=== PATIENT | female | born 1975 | race African-American/Black ===

== ENCOUNTER 2018-05-19 13:23 | Emergency (ER) | payer SELFPAY ==
[2018-05-19 13:40] VITALS: BP 142/109; PULSE 92; TEMP 98.5; BMI 34.4
[2018-05-19] MEDS ORDERED: HYDROmorphone HCL CARPU-JECT 2 MG/1 ML DISP.SYRIN IVPUSH ONE (14:13)
[2018-05-19] MEDS ORDERED: HYDROmorphone HCl 2 MG/ML VIAL ONE (14:29)
[2018-05-19] MEDS ORDERED: LIDOCAINE HCL 2% (20ML MULTI-DOSE VIAL) NR ONE (14:47)
--- NOTE | 2018-05-19 15:07 | PDOC ---
Documentation entered by Rosa Reid SCRIBE, acting as scribe for Bob Castillo MD. Attending Attestation - Resident Resident Name: Ho Brasher - ED Attending Attestation I have performed the following: I have examined & evaluated the patient, The case was reviewed & discussed with the resident, I agree w/resident's findings & plan - HPI HPI: 05/19/18 14:33 The patient is a 43 year old female, with no significant past medical history, who presents to the emergency department with pain to her left lower extremity after slipping and falling on ice today. She reports inability to ambulate secondary to pain. The patient denies chest pain, shortness of breath, headache and dizziness. The patient denies fever, chills, nausea, vomit, diarrhea and constipation. The patient denies dysuria, frequency, urgency and hematuria. Allergies: NKDA - Physicial Exam PE: 05/19/18 15:02 vitals are wnl exam is atraumatic except for LLE: ankle deformity with posterior dislocation, skin tenting anteriorly but intact. 2+ DP pulse on L, sensory decreased but well perfused, unable to range toes - Critical Care Time Total Critical Care Time: 30 Critical Care Statement: The care of this patient involved high complexity decision making to prevent further life threatening deterioration of the patient 's condition and/or to evaluate & treat vital organ system(s) failure or risk of failure. - Medical Decision Making 05/19/18 15:03 43-year-old female with slip on steps, isolated left ankle injury suspicious for fracture/dislocation, neurovascularly intact. Stat x-ray confirms trimalleolar fracture and dislocation received pain control and intra-articular lidocaine reduction performed, posterior and U splint, nvi post procedure and now able to range toes ortho consulted but not immediately available. will give referral Bob Castillo MD: This documentation has been prepared by the Jeanette guerra Amanda, SCRIBE, under my direction and personally reviewed by me in its entirety. I confirm that the documentation accurately reflects all work, treatment, procedures, and medical decision making performed by me.
--- NOTE | 2018-05-19 15:40 | PDOC ---
History of Present Illness - General Chief Complaint: Injury Stated Complaint: FALL,R/O DISLOCATED LT ANKLKE Time Seen by Provider: 05/19/18 13:47 History Source: Patient Exam Limitations: No Limitations - History of Present Illness Initial Comments: 05/19/18 15:32 43 yo female presents to ED after slip and fall with L ankle deformity. Pt states she was walking down her outside steps when she slipped on ice causing an inversion mechanism, sudden onset pain, deformity and could not bare weight. Denies loss of sensation in the foot, pain or bruising to any other part of her body or further complaints. Pt not able to dorsi or plantar flex due to pain but is moving her toes without difficulty Past History - Past Medical History Allergies/Adverse Reactions: Allergies Allergy/AdvReac Type Severity Reaction Status Date / Time No Known Allergies Allergy Verified 05/19/18 13:38 Home Medications: Ambulatory Orders Ibuprofen [Motrin -] 600 mg PO TID #21 tablet 05/19/18 Oxycodone HCl/Acetaminophen [Percocet 5-325 mg Tablet] 1 - 2 tab PO TID PRN #20 tab MDD 6 tabs 05/19/18 COPD: No - Suicide/Smoking/Psychosocial Hx Smoking History: Never smoked Have you smoked in the past 12 months: No Information on smoking cessation initiated: No Hx Alcohol Use: No Drug/Substance Use Hx: No *Physical Exam - Vital Signs Last Vital Signs Temp Pulse Resp BP Pulse Ox 98.5 F 92 H 18 142/109 H 100 05/19/18 13:33 05/19/18 13:33 05/19/18 13:33 05/19/18 13:33 05/19/18 13:33 - Physical Exam General Appearance: Yes: Nourished, Appropriately Dressed, Apparent Distress ( ankle deformity and is in excessive pain) HEENT: positive: EOMI Respiratory/Chest: positive: Lungs Clear, Normal Breath Sounds Cardiovascular: positive: Regular Rhythm, Regular Rate Vascular Pulses: Dorsalis-Pedis (R): 4+, Doralis-Pedis (L): 4+ Gastrointestinal/Abdominal: positive: Flat, Soft. negative: Distended, Tenderness Musculoskeletal: positive: Other (neurovascularly intact bilateral lower ext with visible left foot/ankle def inverted and plantar flexed. Excessive pain on palpation and swelling. Closed skin noted). negative: Normal Inspection (left ankle deformity) Extremity: positive: Normal Capillary Refill, Swelling, Other ( Pt not able to dorsi or plantar flex due to pain but is moving her toes without difficulty) Neurologic: positive: Fully Oriented, Alert, Normal Mood/Affect, Normal Response Moderate Sedation - Procedure Monitoring Vital Signs: Procedure Monitoring Vital Signs Temperature 98.5 F 05/19/18 13:33 Pulse Rate 92 H 05/19/18 13:33 Respiratory Rate 18 05/19/18 13:33 Blood Pressure 142/109 H 05/19/18 13:33 O2 Sat by Pulse Oximetry (%) 100 05/19/18 13:33 Procedures - Joint Reduction Left Joint Reduction Site: left: Anterior Dislocation (ankle) Pre-Procedure NV Exam: normal pulsess, sensation and able to wiggle toes Conscious Sedation: Yes Anesthetic: 2% Lidocaine (hematoma block) Amount (mL): 10 Procedure: Other (quigly) Post-Procedure NV Exam: normal pulsess, sensation and able to wiggle toes Complications: No Post Joint Reduction Film: joint reduced Splint: Yes ED Treatment Course - RADIOLOGY Radiology Studies Ordered: Category Date Time Status ANKLE & FOOT-LEFT* [RAD] Stat Radiology 05/19/18 14:10 Taken ANKLE & FOOT-LEFT* [RAD] Stat Radiology 05/19/18 15:13 Taken LEG TIB/FIB-LEFT [RAD] Stat Radiology 05/19/18 14:10 Taken Medical Decision Making - Medical Decision Making 43 yo presents after trip and fall with left ankle deformity, swelling and pain Pt given 1 mg Dilaudid which helps relieve pain X ray foot and ankle show bilateral maleolar fractures with displacement of the talus Ortho consulted, Dr. Opal VILCHIS returns call, states he is at [facility] and will come to assist with reduction if we need him. Successful reduction achieved using quigly technique and hematoma block for pain. Splint placed. Pain reduced after procedure, sensation intact and patient able to wiggle all her toes. See procedure note Post reduction film shows better alignment, MAME consulted, reviews images and agrees pt is safe for fu this Friday in clinic and will schedule surgery as outpt Pt continues to have pain, 2 percocets and motrin given Pt provided with detailed instructions on how to care for her ankle, given crutches and pain medications along with Ortho phone number to set appointment time Friday. Pt understands DC instructions *DC/Admit/Observation/Transfer Diagnosis at time of Disposition: Closed left ankle fracture Qualifiers: Encounter type: initial encounter Qualified Code(s): S82.892A - Other fracture of left lower leg, initial encounter for closed fracture - Discharge Dispostion Disposition: HOME Condition at time of disposition: Stable Decision to Admit order: No - Prescriptions Prescriptions: Ibuprofen [Motrin -] 600 mg PO TID #21 tablet Oxycodone HCl/Acetaminophen [Percocet 5-325 mg Tablet] 1 - 2 tab PO TID PRN #20 tab MDD 6 tabs PRN Reason: Pain - Referrals Referrals: Leonardo Joseph MD [Staff Physician] - - Patient Instructions Printed Discharge Instructions: DI for Ankle Fracture, How to Prevent Falls Additional Instructions: Please call Dr. Joseph office for a time of appointment this Friday; they are expecting your call. See your Primary Doctor within the next 48 hours. Take Motrin 3 times a day for the next 1 week to reduce swelling and pain and take the medication Percocet as prescribed to reduce pain as needed. Keep the splint in place, use crutches, do no weight bare and keep your left foot elevated whenever possible until your appointment with Orthopedics. Return to the ER for new or concerning symptoms including but not limited to: inability to move your toes, loss of sensation to the feet, excessive pain not relieved by medications , high fevers. Thank you - Post Discharge Activity
[2018-05-19] MEDS ORDERED: IBUPROFEN 400 MG TABLET (FP) PO ONE ×2 (15:55→16:13)
== END 2018-05-19 16:30 | disposition home or self-care (01) ==
LOC: JER 13:23
PROC: 3E033NZ Introduction of Analgesics, Hypnotics, Sedatives into Peripheral Vein, Percutaneous Approach (ICD-10-PCS; principal; 2018-05-19)
PROC: 0QSHXZZ Reposition Left Tibia, External Approach (ICD-10-PCS; 2018-05-19)
PROC: 0QSKXZZ Reposition Left Fibula, External Approach (ICD-10-PCS; 2018-05-19)
PROC: 2W3RX1Z Immobilization of Left Lower Leg using Splint (ICD-10-PCS; 2018-05-19)
DX: S82.852A Displaced trimalleolar fracture of left lower leg, initial encounter for closed fracture (principal); W00.1XXA Fall from stairs and steps due to ice and snow, initial encounter; Y93.89 Activity, other specified; Y92.89 Other specified places as the place of occurrence of the external cause; Y99.8 Other external cause status
CPT/HCPCS: 73590-TC-LT-FY; 73610-TC-LT-FY; 73630-TC-LT; 99282-25

== ENCOUNTER 2018-05-22 16:44 | Emergency (ER) | payer SELFPAY ==
[2018-05-22 17:01] VITALS: TEMP 98.3; BMI 34.5
--- NOTE | 2018-05-22 17:23 | PDOC ---
History of Present Illness - General Chief Complaint: Injury Stated Complaint: NEEDS SEDATION FOR ANKLE REDUCTION Time Seen by Provider: 05/22/18 17:06 History Source: Patient, Care Provider Exam Limitations: No Limitations - History of Present Illness Initial Comments: 05/22/18 17:42 Ms Mckinnon is a 43 yo F presenting to the ER for conscious sedation Pt original injury occurred on 05/18/18 s/p flip and fall when she sustained an ankle fracture dislocation S/p reduction in the ER Pt was seen in the office today where she was noted to have subluxed out of place Attempt made to reduce ankle in the office unsuccessful due to pain Pt presents to the ER for conscious sedation ROS: GENERAL/CONSTITUTIONAL: No: fever, chills, weakness, CARDIOVASCULAR: No: chest pain, lightheadedness RESPIRATORY: No: cough, shortness of breath . GASTROINTESTINAL: No: nausea, vomiting, diarrhea, abdominal pain GENITOURINARY: No: dysuria, hematuria MUSCULOSKELETAL: Yes: left ankle pain SKIN: No: lesions,rash NEUROLOGIC: No: headache, vertigo, paresthesias, weakness PE: GENERAL: The patient is in no acute distress, otherwise well appearing HEAD: Normal EYES: PERRLA, EOMI, sclera anicteric, conjunctiva clear. ENT: Ears normal, nares patent, oropharynx clear without exudates. Moist mucous membranes. LUNGS: Breath sounds equal, clear to auscultation bilaterally. No wheezes, and no crackles. HEART:Regular rate and rhythm, normal S1 and S2 without murmur, rub or gallop. ABDOMEN: Soft, nontender EXTREMITIES: Left leg: left posterior splint in place, will not remove. Right leg: Normal range of motion, no edema. NEUROLOGICAL: Cranial nerves II through XII grossly intact. Normal speech. No focal neurological deficits. MUSCULOSKELETAL: Back non-tender to palpation, no CVA tenderness SKIN: Warm, Dry, normal turgor, no rashes or lesions noted. Past History - Past Medical History Allergies/Adverse Reactions: Allergies Allergy/AdvReac Type Severity Reaction Status Date / Time No Known Allergies Allergy Verified 05/19/18 13:38 Home Medications: Ambulatory Orders Ibuprofen [Motrin -] 600 mg PO TID #21 tablet 05/19/18 Oxycodone HCl/Acetaminophen [Percocet 5-325 mg Tablet] 1 - 2 tab PO TID PRN #20 tab MDD 6 tabs 05/19/18 COPD: No Other medical history: FX LEFT ANKLE - Suicide/Smoking/Psychosocial Hx Smoking History: Never smoked Have you smoked in the past 12 months: No Hx Alcohol Use: No Drug/Substance Use Hx: No *Physical Exam - Vital Signs Last Vital Signs Temp Pulse Resp BP Pulse Ox 98.3 F 90 16 137/98 100 05/22/18 16:45 05/22/18 16:45 05/22/18 16:45 05/22/18 16:45 05/22/18 16:45 Moderate Sedation - Procedure Monitoring Vital Signs: Procedure Monitoring Vital Signs Temperature 98.3 F 05/22/18 16:45 Pulse Rate 90 05/22/18 16:45 Respiratory Rate 16 05/22/18 16:45 Blood Pressure 137/98 05/22/18 16:45 O2 Sat by Pulse Oximetry (%) 100 05/22/18 16:45 Medical Decision Making - Medical Decision Making 05/22/18 17:49 Conscious sedation per anesthesia Ankle reduction per Ortho *DC/Admit/Observation/Transfer Diagnosis at time of Disposition: Closed left ankle fracture Qualifiers: Encounter type: subsequent encounter Fracture healing: with routine healing Qualified Code(s): S82.892D - Other fracture of left lower leg, subsequent encounter for closed fracture with routine healing - Discharge Dispostion Condition at time of disposition: Stable Decision to Admit order: No - Referrals Referrals: Leonardo Joseph MD [Primary Care Provider] - - Patient Instructions Printed Discharge Instructions: DI for Ankle Dislocation Additional Instructions: Ms ChapmanMckinnon Thank you for coming in to the ER today Please be sure to follow up with Dr Joseph per his instructions Monitor your left leg for severe pain, color change of the toes, pins and needles If you feel that, please come back and see us in the ER OR call the office - Post Discharge Activity
[2018-05-22] MEDS ORDERED: morphine SULFATE 4 MG/ML VIAL ONE (18:57)
[2018-05-23 00:19] VITALS: BP 138/92; PULSE 85
--- NOTE | 2018-05-24 11:24 | PN ---
Progress Note (short form) - Note Progress Note: This patient is a 43-year-old who was seen in the office earlier today. A closed reduction was attempted in the office under local anesthetic of her ankle however, persistent lateral translation of the talus was noted on x-rays. She was referred to the ER to try a closed reduction under conscious sedation. After administration of conscious sedation by the anesthetic staff, the ankle was hung in traction by the toes in a manual reduction was effected. The mini C arm was used to verify satisfactory reduction of the ankle. The ankle was near anatomic. A well-padded short-leg cast was placed with a three-point mold. Films obtained with the cast in place demonstrated mild residual lateral subluxation of the talus. It was felt that this was the best possible reduction to be maintained with a cast. Instead of waiting 2 weeks to fix her fracture to allow for resolution of swelling, I recommend bringing her to the operating room this week for ORIF. We will schedule this through our office. She should contact our office if she has any concerns.
== END 2018-05-22 19:15 | disposition home or self-care (01) ==
LOC: FER 16:44
PROC: 0QSKXZZ Reposition Left Fibula, External Approach (ICD-10-PCS; principal; 2018-05-22)
DX: S82.892D Other fracture of left lower leg, subsequent encounter for closed fracture with routine healing (principal); W18.09XA Striking against other object with subsequent fall, initial encounter; Y93.89 Activity, other specified; Y92.89 Other specified places as the place of occurrence of the external cause
CPT/HCPCS: 73610-TC-LT-FY; 84703; 99282-25

== ENCOUNTER 2018-05-29 06:55 | Day surgery (SDC) | payer SELFPAY ==
[2018-05-29 07:00] VITALS: BMI 34.7
--- NOTE | 2018-05-29 07:05 | PDOC ---
History of Present Illness - General Chief Complaint: Pain, Acute Stated Complaint: LEFT ANKLE PAIN Time Seen by Provider: 05/29/18 07:03 History Source: Patient Exam Limitations: No Limitations - History of Present Illness Initial Comments: 05/29/18 07:04 Ms Mckinnon is a 43 yo F no medical history presenting to the ER for ORIF. Pt original injury occurred on 05/18/18 s/p flip and fall when she sustained an left ankle fracture dislocation In the ER on 05/24/18 - s/p closed reduction placed in cast immobilization by Dr Joseph today for ORIF. preoperative planning and labs requested. c/o mild numbness/tingling to to her left toes and ankle, has been in her cast and nonweight bearing. no other complaints. Allergies: NKA Past Medical History: none Social history: Lives with family. No smoking. No alcohol. No illicit drugs. Surgical history: none PMD: none ROS Constitutional: no fevers or chills. HEENT: no headache or dizziness. CVS: no cp Resp: no sob. Gastrointestinal: no abdominal pain MUSCULOSKELETAL: + joint pain and no swelling. +ankle fx SKIN: no redness or skin changes, no discharge, no rash. No wounds. Hematologic: no easy bruising/bleeding. NEUROLOGIC: No weakness, +numbness or tingling. Allergic/Immunologic: no allergies All other systems reviewed and negative, or as documented in HPI. PE: General: Well appearing, awake and alert, NAD. HEENT: NCAT, PERRL, EOMI, clear conjunctiva, anicteric, moist mucus membranes, clear oropharynx, no oral lesions.. Neck: neck supple, FROM Resp: CTAB, normal and even respirations, no respiratory distress CVS: RRR, no murmurs, 2+ peripheral pulses throughout Abdomen: soft, nontender Back: nontender, normal inspection and ROM MSK: no edema, [place] x4, ROM limited in LLE. Extremities: +LLE in short leg cast. Neuro: alert, oriented appropriately; wiggles toes, SILT in the bilateral toes, NVI Skin: warm and well perfused, cap refill <2 sec, normal color 05/29/18 07:26 05/29/18 07:28 Past History - Past Medical History Allergies/Adverse Reactions: Allergies Allergy/AdvReac Type Severity Reaction Status Date / Time No Known Allergies Allergy Verified 05/29/18 06:56 Home Medications: Ambulatory Orders Ibuprofen [Motrin -] 600 mg PO TID #21 tablet 05/19/18 Oxycodone HCl/Acetaminophen [Percocet 5-325 mg Tablet] 1 - 2 tab PO TID PRN #20 tab MDD 6 tabs 05/19/18 Anemia: No Asthma: No Cancer: No Cardiac Disorders: No CVA: No COPD: No CHF: No Dementia: No Diabetes: No GI Disorders: No Disorders: No HTN: No Hypercholesterolemia: No Liver Disease: No Seizures: No Thyroid Disease: No - Suicide/Smoking/Psychosocial Hx Smoking History: Current every day smoker Have you smoked in the past 12 months: Yes Number of Cigarettes Smoked Daily: 4 Information on smoking cessation initiated: Yes Hx Alcohol Use: No Drug/Substance Use Hx: No Substance Use Type: None Hx Substance Use Treatment: No *Physical Exam - Vital Signs Last Vital Signs Temp Pulse Resp BP Pulse Ox 98.7 F 102 H 18 132/94 100 05/29/18 06:55 05/29/18 06:55 05/29/18 06:55 05/29/18 06:55 05/29/18 06:55 Moderate Sedation - Procedure Monitoring Vital Signs: Procedure Monitoring Vital Signs Temperature 98.7 F 05/29/18 06:55 Pulse Rate 102 H 05/29/18 06:55 Respiratory Rate 18 05/29/18 06:55 Blood Pressure 132/94 05/29/18 06:55 O2 Sat by Pulse Oximetry (%) 100 05/29/18 06:55 Medical Decision Making - Medical Decision Making 05/29/18 07:30 History and physical as documented. In summary, 43-year-old female status post fall on 05/18/2018 with left ankle fracture/dislocation and here for ORIF. Vital signs reviewed, mild tachycardia likely due to pain we'll provide analgesia. Basic preoperative labs obtained, contacted primary orthopedist Dr. Joseph will admit to the operating room for ORIF. Patient has been maintained in her short-leg cast and has been nonweightbearing. Neurovascularly intact. Has been nothing by mouth since last night. *DC/Admit/Observation/Transfer Diagnosis at time of Disposition: Closed left ankle fracture Qualifiers: Encounter type: subsequent encounter Fracture healing: with malunion Qualified Code(s): S82.892P - Other fracture of left lower leg, subsequent encounter for closed fracture with malunion - Discharge Dispostion Condition at time of disposition: Stable Decision to Admit order: Yes Decision to Admit order Date/Time: 05/29/18 07:32 Decision to Admit Order Category Date Time Status Decision to Admit to Hospital Routine Admission 05/29/18 07:26 Ordered - Referrals - Patient Instructions - Post Discharge Activity
[2018-05-29] MEDS ORDERED: morphine CARPU-JECT 4 MG/1 ML DISP.SYRIN IVPUSH ONE (07:38)
[2018-05-29 08:00] LABS: BASO % 2.4 % (0-2.0); HEMOGLOBIN 13.6 GM/dl (10.7-15.3); LYMPH % 15.9 % (8-40); MCH 32.6 pg (25.7-33.7); MCHC 33.2 g/dl (32.0-36.0); MEAN CELL VOLUME 98.3 fl (80-96); MEAN PLT VOLUME 7.6 fl (7.5-11.1); MONO % 6.5 % (3.8-10.2); NEUT % 71.2 % (42.8-82.8); PLATELET COUNT 360 K/MM3 (134-434); RBC 4.17 M/mm3 (3.60-5.2); RDW 12.2 % (11.6-15.6); WHITE BLOOD COUNT 7.1 K/mm3 (4.0-10.8)
--- NOTE | 2018-05-29 08:06 | HP ---
Admitting History and Physical - Admission Chief Complaint: Left ankle fracture History of Present Illness: 43 yo female presents for left ankle ORIF s/p fall on 05/18/18. A closed reduction and casting was attempted by myself and Dr. Joseph in the ER on without satisfactory assignment. Patient presents in cast today, nonweight bearing. She complains of some numbness/tingling to to her left toes. No other complaints at this time. History Source: Patient - Past Medical History ...LMP: 05/15/18 - Past Surgical History Past Surgical History: Yes: None - Smoking History Smoking history: Current every day smoker Have you smoked in the past 12 months: Yes Aproximately how many cigarettes per day: 4 - Alcohol/Substance Use Hx Alcohol Use: No - Social History Usual Living Arrangement: Yes: With Spouse Home Medications - Allergies Allergies/Adverse Reactions: Allergies Allergy/AdvReac Type Severity Reaction Status Date / Time No Known Allergies Allergy Verified 05/29/18 06:56 - Home Medications Home Medications: Ambulatory Orders Ibuprofen [Motrin -] 600 mg PO TID #21 tablet 05/19/18 Oxycodone HCl/Acetaminophen [Percocet 5-325 mg Tablet] 1 - 2 tab PO TID PRN #20 tab MDD 6 tabs 05/19/18 Family Disease History - Family Disease History Family History: Denies Review of Systems - Review of Systems Musculoskeletal: reports: Extremity Pain (Left ankle pain) Physical Examination Vital Signs: Vital Signs Temperature 98.7 F 05/29/18 06:55 Pulse Rate 102 H 05/29/18 06:55 Respiratory Rate 18 05/29/18 06:55 Blood Pressure 132/94 05/29/18 06:55 O2 Sat by Pulse Oximetry (%) 100 05/29/18 06:55 Findings/Remarks: Left LE: Short leg cast in place Neurovascularly intact Cap refill intact Problem List - Problems (1) Closed left ankle fracture Code(s): S82.892A - OTH FRACTURE OF LEFT LOWER LEG, INIT FOR CLOS FX Qualifiers: Encounter type: subsequent encounter Fracture healing: with malunion Qualified Code(s): S82.892P - Other fracture of left lower leg, subsequent encounter for closed fracture with malunion Assessment/Plan A: left ankle fracture s/p mechanical fall on 05/18/18 P: Left ankle ORIF today Remain non-weight bearing Pain control F/u outpatient in 2 weeks
[2018-05-29] MEDS ORDERED: SUCCINYLCHOLINE CHLORIDE 200 MG/10 ML VIAL ONE (08:10)
[2018-05-29] MEDS ORDERED: PROPOFOL 20 ML ONE ×2 (08:10→10:00)
--- NOTE | 2018-05-29 08:14 | OP ---
Operative Note - Note: Operative Date: 05/29/18 Pre-Operative Diagnosis: Left distal fibula fracture Operation: Left ankle ORIF Post-Operative Diagnosis: Same as Pre-op Surgeon: Leonardo Joseph Junior Brand Manager: Leslie Luna Anesthesia: General Operative Report Dictated: Yes
[2018-05-29] MEDS ORDERED: MIDAZOLAM HCL 2 MG/2 ML SINGLE DOSE VIAL ONE ×3 (08:26→09:03)
[2018-05-29] MEDS ORDERED: ROPIVACAINE HCL 0.5% 30ML VIAL ONE (08:27)
[2018-05-29] MEDS ORDERED: ceFAZolin SODIUM 1 GM VIAL ONE (09:04)
[2018-05-29] MEDS ORDERED: TRANEXAMIC ACID 1000 MG/10 ML VIAL ONE (09:59)
--- NOTE | 2018-05-29 11:38 | OP ---
DATE OF OPERATION: 05/29/2018 PREOPERATIVE DIAGNOSIS: Left unstable ankle fracture. POSTOPERATIVE DIAGNOSIS: Left unstable ankle fracture. PROCEDURE: Left ankle open reduction internal fixation. SURGEON: Leonardo Panda MD DEMOLITION WORKER: MAME Kaplan whose skilled full assistance was necessary for the safe and timely performance of this procedure. Ms. Luna was able to procedure limb positioning, retraction, assist in fracture reduction as well as insertion of orthopaedic fixation hardware. BLOOD LOSS: 30 mL. POSTOPERATIVE CONDITION: Stable. COMPLICATIONS: None. IMPLANTS: Arthrex distal fibular plate with 2.7-mm distal locking and 3.5-mm cortical screws as well as one 3 cortical screw outside the plate and one 3.5-mm cortical screw outside the plate. TOURNIQUET TIME: 47 minutes. INDICATIONS: This is a pleasant woman who suffered a trip and fall on the ice. She was found to have a displaced and unstable ankle fracture. Given the instability and persistent displacement despite attempted closed reduction, the patient was indicated for operative treatment. The operative risks were reviewed in detail including bleeding, infection, neurovascular injury, need for further surgery, postoperative pain and stiffness, nonunion, malunion, hardware failure or cut out, posttraumatic arthrosis. We discussed medical risks such as heart attack, stroke, DVT, PE, and . I addressed the use of perioperative DVT and antibiotic prophylaxis. I addressed all of the patient's questions and concerns. She voiced understanding and elected to proceed. DESCRIPTION OF PROCEDURE: The patient was brought to the operating room after administration of a regional block in the preoperative holding area. The left lower extremity was then prepped and draped in the usual sterile fashion. A preoperative dose of antibiotics was given, and the usual time-out procedure was performed. The incision was now marked out on the the distal fibula. The limb was now exsanguinated, and the tourniquet was inflated to 250 mmHg. The incision was now carried down through skin through subcutaneous tissue. Blunt spreading was used to expose the periosteum over the tibula. This was then elevated anteriorly and posteriorly exposing the fracture site. The fracture site was widely displaced. There was mild comminution present. The fracture site was debrided of any loose debris. It was irrigated. The fracture reduction forceps was now used to bring the fracture into anatomic reduction. A lag screw was placed in standard A-to-P fashion. There was a secondary fragment, AITFL avulsion, which was held in place with a K-wire. The neutralization plate was now chosen and affixed to the bone using a combination of nonlocking screws proximally and locking screws distally. At this point, both visual inspection and radiography verified hardware placement and fracture reduction. Both were satisfactory. In order to secure the avulsion fragment, a 3-0 screw was drilled and then placed securing this fragment as well. At this point, the construct was again examined both visually and fluoroscopically. Both fracture reduction and hardware placement were satisfactory. The ankle was now passed through a live external rotation stress test under fluoroscopy, and no widening was noted of the mortis. The wound was normal copiously irrigated. The deep tissue was approximated using 0 Vicryl. The subcutaneous tissue was approximated using 2-0 Vicryl. The skin was closed using vertical mattress 3-0 nylon suture. Sterile dressings were then placed. It should be noted that prior to closure, the tourniquet was let down, and hemostasis was verified using electrocautery. The patient was then placed into a well-padded short-leg cast. She was transferred to the recovery room in stable condition. LEONARDO PANDA M.D. [id number]
[2018-05-29] MEDS ORDERED: ONDANSETRON 4 MG/2 ML VIAL IVPUSH PRN (12:39)
[2018-05-29] MEDS ORDERED: oxyCODONE HCL 5 MG TABLET PO PRN ×2 (12:39)
[2018-05-29] MEDS ORDERED: LACTATED RINGERS SOLUTION 1,000 ML IV SCH (12:45)
[2018-05-29 15:09] VITALS: BP 118/78; PULSE 98; TEMP 99.8
== END 2018-05-29 15:05 | disposition home or self-care (01) ==
LOC: FOR 06:55 → FASUSAT 07:47
PROVIDERS: ATTEND Orthopaedic Surgery Sports Medicine
PROC: 0QSH04Z Reposition Left Tibia with Internal Fixation Device, Open Approach (ICD-10-PCS; 2018-05-29)
PROC: 0QSK04Z Reposition Left Fibula with Internal Fixation Device, Open Approach (ICD-10-PCS; principal; 2018-05-29 09:21)
DX: S82.852G Displaced trimalleolar fracture of left lower leg, subsequent encounter for closed fracture with delayed healing (principal); W00.0XXD Fall on same level due to ice and snow, subsequent encounter
CPT/HCPCS: 27822; C1713; 36415; 73610-TC-LT-FY; 76000-TC-FY; 84703; 85025; 94760; 99282-25